=== PATIENT | male | born 1990 | race Caucasian/White ===

== ENCOUNTER 2023-11-19 19:37 | Emergency (ER) | payer OTHER ==
[2023-11-19 19:43] VITALS: BP 115/79; PULSE 76; RESP 16
[2023-11-19] MEDS ORDERED: 0.9%NACL 1000ML 1,000 ML IV ONE (20:00)
== END 2023-11-19 20:11 | disposition left against medical advice (07) ==
LOC: EDH 19:37
DX: F10.129 Alcohol abuse with intoxication, unspecified (principal); E16.2 Hypoglycemia, unspecified; Z53.29 Procedure and treatment not carried out because of patient's decision for other reasons; Y90.9 Presence of alcohol in blood, level not specified
CPT/HCPCS: 82948

== ENCOUNTER 2023-12-26 01:44 | Emergency (ER) | payer OTHER ==
[~2023-12-26] VITALS: Ht 182.9 cm; Wt 77.1 kg
[2023-12-26 01:45] VITALS: BP 134/80; PULSE 72; RESP 18
== END 2023-12-26 02:53 | disposition left against medical advice (07) ==
LOC: EDH 01:44
DX: M79.89 Other specified soft tissue disorders (principal); R22.31 Localized swelling, mass and lump, right upper limb
CPT/HCPCS: 36415; 73080; 84550

== ENCOUNTER 2024-11-17 12:39 | Emergency (ER) | payer OTHER ==
[~2024-11-17] VITALS: Ht 182.9 cm; Wt 77.1 kg
--- NOTE | 2024-11-17 13:02 | ERN ---
General Chief Complaint: Flank Pain Stated Complaint: FLANK PAIN Time Seen by MD: 12:44 Source: patient, EMS History of Present Illness Initial Comments Patient is a 34-year-old male coming in complaining of left flank pain. He states he had does has a history of kidney stones in his has been having that flank pain for about three days. He also states that his pain is quantifies the 10/10. Allergies: Coded Allergies: Penicillins (Unverified Allergy, Unknown, 11/17/24) Past Medical History Past Medical History: Other Medical History Other: KIDNEY STONES Past Surgical History: None Surgical History Other: UNKNOWN ANKLE INFANT ROS Dictation CONSTITUTIONAL: No chills, no fever, no weakness, no diaphoresis, no malaise. HEAD/FACE: No signs of trauma. EENT: No eye pain, no blurred vision, no tearing, no double vision, no ear pain, no ear discharge, no nose pain, no nasal congestion, no throat pain, no throat swelling, no mouth pain. RESPIRATORY: No cough, no orthopnea, no SOB, no stridor, no wheezing. CARDIOVASCULAR: No chest pain, no edema, no palpitations, no syncope. GASTROINTESTINAL/ABDOMINAL: abdominal pain, no constipation, no diarrhea, no nausea, no vomiting. GENITOURINARY: No abnormal discharge, no dysuria, no frequent urination, no hematuria. No complaints of pain in the genitals. MUSCULOSKELETAL: No back pain, no gout, no joint pain, no joint swelling, no muscle pain, no muscle stiffness, no neck pain. INTEGUMENTARY: No change in color, no change in hair/nails, no dryness, no lesion, no lumps, no rash. NEUROLOGICAL/PSYCH: No anxiety, not depressed, no emotional problem, no headache, no numbness, no pre-existing deficit, no history of seizures, no tremors, no weakness. HEMATOLOGIC/LYMPHATIC: Not anemic, no history of blood clots, no apparent bleeding, no bruising, glands not swollen. All Systems Negative, Except as Noted. Physical Exam Physical Exam Dictation VITAL SIGNS: Reviewed. GENERAL APPEARANCE: Alert, oriented x3, no acute distress, obese. HEAD AND FACE: Non-traumatic. EYES: PERRL, pink conjunctivas, eyelid no trauma, anterior chamber clear. EARS: Pinnas intact and no signs of trauma or erythema. Ear canals clear and no discharge. TMs no erythema. NOSE: No discharge, no bleeding. OROPHARYNX: Mouth normal, teeth no caries, tongue pink. Pharynx clear, no erythema. Tonsils no exudates, no abscesses noted. Mucous membrane moist. NECK: Supple, non-tender, no thyromegaly, no masses, no JVD, no bruits. BREAST: Deferred. CHEST: No tenderness, no crepitus, no paradoxical movement, no retractions. LUNGS: Clear, well-ventilated, symmetric, no rales, no wheezing, no rhonchi, no stridor, good breath sounds bilaterally. HEART: Regular rate, regular rhythm, no murmur, no gallops. VASCULAR: No peripheral edema. ABDOMEN: Soft, positive bowel sounds, nondistended, no guarding, left flank pa in, left CVA angle tenderness, no rebound, no masses no hepatomegaly, no splenomegaly, no Ren's sign, no hernias. RECTAL: Deferred. GENITAL: Deferred. NEUROLOGICAL: Normal speech, gross motor function intact, gross sensory function intact. MUSCULOSKELETAL: Neck nontender, full range of motion, back nontender, full range of motion. EXTREMITIES: Nontender, full range of motion. SKIN: Color pink, dry, no turgor, no rash, no lacerations, no abrasions, no contusions. LYMPHATICS: Deferred. Results Laboratory and Microbiology Lab and Micro Result Laboratory Tests Test 11/17/24 13:09 White Blood Count 10.8 K/uL (4.8-10.8) Red Blood Count 3.86 MIL/uL (4.50-6.20) L Hemoglobin 12.1 g/dL (14.0-18.0) L Hematocrit 35.0 % (42-54) L Mean Corpuscular Volume 90.7 fL (79-99) Mean Corpuscular Hemoglobin 31.3 pg (27.0-33.0) Mean Corpuscular Hemoglobin Concent 34.6 g/dL (32.0-36.0) Red Cell Distribution Width 12.6 % (11.0-15.5) Platelet Count 213 K/uL (130-400) Mean Platelet Volume 9.4 fL (7.5-10.5) Immature Granulocyte % (Auto) 0.4 % (0-1) Neutrophils (%) (Auto) 85.4 % (40.0-77.0) H Lymphocytes (%) (Auto) 8.1 % (21.0-51.0) L Monocytes (%) (Auto) 5.0 % (3.0-13.0) Eosinophils (%) (Auto) 0.6 % (0.0-8.0) Basophils (%) (Auto) 0.5 % (0.0-5.0) Neutrophils # (Auto) 9.2 K/uL (1.8-7.7) H Lymphocytes # (Auto) 0.9 K/uL (1.0-4.8) L Monocytes # (Auto) 0.5 K/uL (0.1-1.0) Eosinophils # (Auto) 0.07 K/uL (0.00-0.70) Basophils # (Auto) 0.05 K/uL (0.00-0.20) Absolute Immature Granulocyte (auto 0.04 K/uL (0-1) Nucleated Red Blood Cells 0.0 % (0.0-0.19) White Cell Morphology Comment See comments Sodium Level 142 mmol/L (136-145) Potassium Level 3.6 mmol/L (3.5-5.1) Chloride Level 107 mmol/L (101-111) Carbon Dioxide Level 26 mmol/L (21-32) Blood Urea Nitrogen 22 mg/dL (7-18) H Creatinine 1.1 mg/dL (0.5-1.3) Glomerular Filtration Rate Calc 89 mL/min (>90) Random Glucose 150 mg/dL (70-105) H Total Calcium 8.5 mg/dL (8.5-10.1) EKG/XRAY/US/CT/MRI CT Scan Comment [address] [address] IMAGING REPORT Signed PATIENT: SOPHIA COSTA MR#: [id number] : 1990 SEX: M AGE: 34 LOCATION: [facility] ORDER [id number] STATUS: REG ER REPORT#: [id number] SERVICE [id number] REASON: left flank pain ORDERING PHYSICIAN: JAMISON BRADFORD MD PROCEDURE: ABD PEL WO - CT ABDOMEN/PELVIS W/O CONTRAST EXAM: CT Abdomen and Pelvis Without IV contrast CLINICAL HISTORY: left flank pain TECHNIQUE: Axial computed tomography images of the abdomen and pelvis without intravenous contrast. CONTRAST: No IV contrast. COMPARISON: None provided. FINDINGS: LUNG BASES: There is mild dependent airspace disease within the bilateral lower lobes that is presumed to reflect atelectasis. LIVER: Unremarkable. GALLBLADDER AND BILE DUCTS: The gallbladder appears within normal limits. No radioopaque gallstones are seen. No biliary ductal dilatation is evident. PANCREAS: Unremarkable. SPLEEN: A tiny calcific granuloma is noted along splenic parenchyma. ADRENAL GLANDS: Unremarkable. KIDNEYS, URETERS, AND BLADDER: 0.3 cm obstructing calculus at the left UVJ resulting in mild left hydroureter/hydronephrosis. A few tiny non-obstructive calculi are noted along right kidney. STOMACH AND BOWEL: Unremarkable appearance of the stomach and bowel. No evidence of bowel obstruction. No evidence suggesting enteritis or colitis. APPENDIX: No evidence of acute appendicitis on CT examination. PERITONEUM: No free fluid. No free air. LYMPH NODES: No lymphadenopathy is evident. REPRODUCTIVE: Unremarkable as visualized. VASCULATURE: No evidence of abdominal aortic aneurysm. BONES: No aggressive appearing osseous lesion. No acute osseous pathology evident. IMPRESSION: 1. 0.3 cm obstructing calculus at left ureterovesical junction with mild left hydroureter and hydronephrosis. 2. Non-obstructing right renal calculi. /[place] DICTATED BY: TRAVIS CONWAY Jr., MD DATE: 11/17/24 1520 ELECTRONICALLY SIGNED BY: TRAVIS CONWAY Jr., MD DATE: 11/17/24 1520 [facility] MDM: Differential diagnosis: Ureter stone, kidney stone, abdominal pain, Rationale: Tests considered and ordered secondary to shared decision making include: Previous outside records reviewed: Old ER visits. Risk of complication and/or morbidity or mortality of patient management: None Medications-Per medication reconciliation Need for hospitalization: Patient does not meet criteria for hospitalization. Patient is a 34-year-old male coming in to be evaluated for left flank pain. CT disclose a 3 mm UVJ stone. Patient will be discharged in stable condition with a diagnosis of ureterolithiasis. I did advised him appropriate follow up with PCP in 1-2 days. ED Course Orders Procedure Category Date Status Time Cbc With Differential LAB 11/17/24 Complete 12:51 Basic Metabolic Panel LAB 11/17/24 Complete 12:51 Urinalysis LAB 11/17/24 Logged W/Microscopic 12:51 0.9%Nacl 1000ml (Ns PHA 11/17/24 Complete 1000ml) 13:00 Ketorolac PHA 11/17/24 Complete Tromethamine 30mg/Ml 13:00 Ct Abdomen/Pelvis W/O CT 11/17/24 Resulted Contrast 13:07 Current Medications Medications (Trade) Dose Ordered Sig/Mackenzie Route PRN Reason Start Time Stop Time Status Last Admin Dose Admin Ketorolac Tromethamine (toRADol) 30 mg ONCE ONCE IVP 11/17/24 13:00 11/17/24 13:01 DC 11/17/24 13:12 Sodium Chloride 1,000 ml @ 0 mls/hr ONCE ONCE IV 11/17/24 13:00 11/17/24 13:01 DC 11/17/24 13:11 Vital Signs Date Time Temp Pulse Resp B/P (MAP) Pulse Ox O2 Delivery O2 Flow Rate FiO2 11/17/24 13:16 59 18 122/98 100 Room Air* 0 21 11/17/24 12:40 62 16 119/70 96 Room Air 0 DX & DISP Disposition: Discharge Departure Impression: Primary Impression: Left ureteral stone Condition: Stable Scripts Ciprofloxacin HCl (Cipro) 250 Mg Tablet 1 TAB PO BID for 7 Days, #14 TAB 0 Refills Prov: JAMISON BRADFORD MD 11/17/24 Tamsulosin HCl (Flomax) 0.4 Mg Cap.er.24h 1 CAP PO DAILY for 7 Days, #7 CAP 0 Refills Prov: JAMISON BRADFORD MD 11/17/24 Ketorolac Tromethamine (Ketorolac Tromethamine) 10 Mg Tablet 1 TAB PO Q6HPRN PRN for pain for 5 Days, #20 TAB 0 Refills Prov: JAMISON BRADFORD MD 11/17/24 Additional Instructions: FOLLOW-UP WITH PRIMARY CARE PROVIDER IN 1 TO 2 DAYS. TAKE MEDICATIONS DIRECTED HERE IN THE EMERGENCY ROOM. OKAY TO CONTINUE HOME MEDICATIONS UNLESS OTHERWISE DISCUSSED DURING YOUR VISIT IN THE EMERGENCY ROOM TODAY. RETURN TO YOUR NEAREST EMERGENCY ROOM IF SYMPTOMS WORSEN OR IF THERE IS NO IMPROVEMENT. CALL 911 IF YOU NEED IMMEDIATE ASSISTANCE. TAKE TYLENOL [id number] NEEDED AND IF NO CONTRAINDICATIONS ARE PRESENT. INCREASE ORAL HYDRATION. A WOUND CULTURE OR URINE CULTURE WAS ORDERED HERE IN THE EMERGENCY ROOM DEPARTMENT PLEASE FOLLOW-UP WITH PRIMARY CARE PROVIDER AND ADVISE THEM TO GET REPORTS FROM OUR FACILITY. IF YOU HAD ANY CINDY WRAP/SPLINTS THAT WERE APPLIED HERE, PLEASE DO NOT REMOVE THEM UNTIL YOU SEE YOUR PRIMARY CARE OR SPECIALTY. Referrals: Referrals: SELF,REFERRAL (PCP) MANDO GTZ MD, LUIS A MD Time of Disposition: 14:35 JAMISON BRADFORD MD Nov 17, 2024 13:02
[2024-11-17] MEDS: 0.9%NACL 1000ML 1,000 ML IV ONE (13:11)
[2024-11-17 13:15] LABS: IMMATURE GRANULOCYTE ABSOLUTE 0.04 K/uL (0-1); NUCLEATED RED BLOOD CELLS 0.0 % (0.0-0.19); PLATELET COUNT (AUTO) 213 K/uL (130-400); RED BLOOD CELL COUNT(AUTO) 3.86 MIL/uL (4.50-6.20); RED CELL DISTRIBUTION WIDTH 12.6 % (11.0-15.5); WHITE BLOOD COUNT (AUTO) 10.8 K/uL (4.8-10.8)
--- NOTE | 2024-11-17 13:24 | NUR ---
pt was given ua cup
[2024-11-17 13:34] LABS: CREATININE 1.1 mg/dL (0.5-1.3); GLOMERULAR FILTR. RATE CALC 89.0 mL/min (>90); GLUCOSE,RANDOM 150.0 mg/dL (70-105); SODIUM SERUM 142.0 mmol/L (136-145); UREA NITROGEN, BLOOD 22.0 mg/dL (7-18)
--- NOTE | 2024-11-17 14:21 | HMCIMG ---
EXAM: CT Abdomen and Pelvis Without IV contrast CLINICAL HISTORY: left flank pain TECHNIQUE: Axial computed tomography images of the abdomen and pelvis without intravenous contrast. CONTRAST: No IV contrast. COMPARISON: None provided. FINDINGS: LUNG BASES: There is mild dependent airspace disease within the bilateral lower lobes that is presumed to reflect atelectasis. LIVER: Unremarkable. GALLBLADDER AND BILE DUCTS: The gallbladder appears within normal limits. No radioopaque gallstones are seen. No biliary ductal dilatation is evident. PANCREAS: Unremarkable. SPLEEN: A tiny calcific granuloma is noted along splenic parenchyma. ADRENAL GLANDS: Unremarkable. KIDNEYS, URETERS, AND BLADDER: 0.3 cm obstructing calculus at the left UVJ resulting in mild left hydroureter/hydronephrosis. A few tiny non-obstructive calculi are noted along right kidney. STOMACH AND BOWEL: Unremarkable appearance of the stomach and bowel. No evidence of bowel obstruction. No evidence suggesting enteritis or colitis. APPENDIX: No evidence of acute appendicitis on CT examination. PERITONEUM: No free fluid. No free air. LYMPH NODES: No lymphadenopathy is evident. REPRODUCTIVE: Unremarkable as visualized. VASCULATURE: No evidence of abdominal aortic aneurysm. BONES: No aggressive appearing osseous lesion. No acute osseous pathology evident. IMPRESSION: 1. 0.3 cm obstructing calculus at left ureterovesical junction with mild left hydroureter and hydronephrosis. 2. Non-obstructing right renal calculi. /[place]
[2024-11-17] MEDS ORDERED: CIPR-279 PO (14:37)
[2024-11-17] MEDS ORDERED: TAMS-55 PO (14:37)
[2024-11-17] MEDS ORDERED: KETO10TA2 PO (14:37)
[2024-11-17 14:55] VITALS: BP 121/82; PULSE 60; RESP 18; TEMP 97.9; O2SAT 96
== END 2024-11-17 14:58 | disposition home or self-care (01) ==
LOC: EDH 12:39
DX: N13.2 Hydronephrosis with renal and ureteral calculous obstruction (principal); Z88.0 Allergy status to penicillin
CPT/HCPCS: 99285; 74176; 96374; 96361; 80048; 85025; 36415; J1885; J7030

== ENCOUNTER → 2025-02-03 | Emergency (ER) | payer BC, OTHER ==
[~2025-02-03] VITALS: Ht 185.4 cm; Wt 77.1 kg
[~2025-02-03] MED LIST: CIPR-279 PO; KETO10TA2 PO; TAMS-55 PO
--- NOTE | 2025-02-03 23:00 | NUR ---
PATIENT VALUABLES GIVEN TO SECURITY. ED RN WITNESSED. RECEIPT IN CHART.
[2025-02-03 23:10] VITALS: BP 138/68; PULSE 115; RESP 22; TEMP 100.2; O2SAT 100
[2025-02-03 23:23] VITALS: TEMP 100.2
--- NOTE | 2025-02-03 23:33 | ERN ---
ED Note History of Present Illness Stated Complaint: NASAL CONGESTION, FEVER Chief Complaint: Flu Symptoms Time Seen by MD: 22:59 Time Seen by Midlevel: 22:59 Dictation: The patient is a 34-year-old male with no past medical history who presents to the emergency department with complaints of runny nose and fevers onset two weeks ago. Reports he was not fci and thinks he was exposed to something. Patient denies any cough or any other associated symptoms Allergies: Coded Allergies: Penicillins (Unverified Allergy, Unknown, 11/17/24) Home Meds Active Scripts Ciprofloxacin HCl (Cipro) 250 Mg Tablet, 1 TAB PO BID for 7 Days, #14 TAB 0 Refills Prov:JAMISON BRADFORD MD 11/17/24 Tamsulosin HCl (Flomax) 0.4 Mg Cap.er.24h, 1 CAP PO DAILY for 7 Days, #7 CAP 0 Refills Prov:JAMISON BRADFORD MD 11/17/24 Ketorolac Tromethamine (Ketorolac Tromethamine) 10 Mg Tablet, 1 TAB PO Q6HPRN PRN for pain for 5 Days, #20 TAB 0 Refills Prov:JAMISON BRADFORD MD 11/17/24 Past Medical History Past Medical History: Other Additional Past Medical Hx: KIDNEY STONES Surgical History: None Surgical History Other: UNKNOWN ANKLE INFANT RN Note Reviewed/Agreed w/PFSH: Yes Review of System Dictation Constitutional: Negative for chills, and weight loss positive for fever Eyes: Negative for injury, pain,redness, and discharge ENT: Negative for injury,pain or swelling positive for nasal congestion Cardiovascular: Negative for chest pain, palpitations, and edema Respiratory: Negative for shortness of breath, cough, and wheezing, Abdomen/GI: Negative for abdominal pain, nausea, vomiting, diarrhea, and constipation Back: Negative for injury and pain : Negative for injury, bleeding and discharge MS/Extremity: Negative for injury and deformity Skin: Negative for rash, and discoloration Neuro: Negative for headache, weakness, numbness, tingling, and seizure Psych: Negative for suicide ideation, homicidal ideation, and hallucinations Initial Vital Sign VS Vital Signs Date Time Temp Pulse Resp B/P (MAP) Pulse Ox O2 Delivery O2 Flow Rate FiO2 02/03/25 22:58 100.2 118 20 114/71 98 Room Air 02/03/25 23:10 0 21 Physical Exam Dictation Vital Signs reviewed General Appearance: Alert, oriented x 3, no acute distress, well developed, nourished. Head and Face: non-traumatic. Eyes: PERRL, pink conjunctivas, eyelid no trauma, anterior chamber with arcus senilis. Ears: Pinnas intact and no signs of trauma or erythema ear canals clear and no discharge TM no erythema Nose: No discharge, no bleeding. Oropharynx: Mouth normal, tongue pink. pharynx clear,no erythema, tonsils no exudates, no abscesses noted, mucous membrane moist Neck: Supple, non-tender, no thyromegaly, no masses, no JVD, no bruits Breast:Deferred Chest:No tenderness, no crepitus, no paradoxical movement, no retractions Lungs:Clear, well-ventilated, symmetric, no rales, no wheezing, no rhonchi, no stridor, good breath sounds bilaterally Heart: Regular rate, regular rhythm, no murmur, no gallops Vascular: no peripheral edema, Abdomen: Soft, positive bowel sounds, nondistended, no guarding, nontender, no rebound, no masses no hepatomegaly, no splenomegaly, no Ren's sign, no hernias. Rectal: Deferred Genital: Deferred Neurological: Normal speech, motor function intact, sensory function intact Musculoskeletal: Neck nontender, full range of motion, back nontender, full range of motion, Extremities: nontender, full range of motion Skin: Color pink, dry, no turgor, no rash, no lacerations, no abrasions, no contusions. Lymphatic: Deferred Results (Laboratory/Radiology) Laboratory/Radiology Laboratory Tests Test 02/03/25 23:14 Influenza Type A Antigen Negative For Type A Influenza Type B Antigen Negative For Type B SARS-CoV-2 Antigen (Rapid) PRESUMPTIVE NEGATIVE Group A Streptococcus Rapid negative (NEGATIVE) Labs Reviewed?: Yes ED Course ED Course Orders Procedure Category Date Status Time Influenza Type A & B, LAB 02/03/25 Complete Rapid 23:07 Covid19 (Sars Antigen LAB 02/03/25 Complete Rapid) 23:07 Rapid (Group A Strep) LAB 02/03/25 Complete 23:07 Acetaminophen 500mg PHA 02/03/25 Complete Tab (Tylenol 500mg T 23:30 Current Medications Medications (Trade) Dose Ordered Sig/Mackenzie Route PRN Reason Start Time Stop Time Status Last Admin Dose Admin Acetaminophen (TYLenol 500MG TAB) 1,000 mg ONCE ONCE PO 02/03/25 23:30 02/03/25 23:31 DC 02/03/25 23:23 Vital Signs Date Time Temp Pulse Resp B/P (MAP) Pulse Ox O2 Delivery O2 Flow Rate FiO2 02/03/25 23:23 100.2 02/03/25 23:10 100.2 115 22 138/68 100 Room Air* 0 21 02/03/25 22:58 100.2 118 20 114/71 98 Room Air Medical Decision Making MDM The patient is a 34-year-old male with no past medical history who presents to the emergency department with complaints of runny nose and fevers onset two weeks ago. Reports he was not f[facility] and thinks he was exposed to something. Patient denies any cough or any other associated symptoms Serology was negative. Patient has symptoms consistent with a an upper respiratory infection. On physical exam patient is in no acute distress, nontoxic appearance, clear lung sounds. Patient will be discharged to follow up with PCP. Differential diagnosis: URI, strep throat, influenza Need for hospitalization: Patient does not meet criteria for hospitalization. There are no social concerns with this patient. DX & DISP Disposition: Discharge Departure Impression: Primary Impression: URI (upper respiratory infection) Condition: Stable Additional Instructions: FOLLOW-UP WITH PRIMARY CARE PROVIDER IN 1 TO 2 DAYS. TAKE MEDICATIONS DIRECTED HERE IN THE EMERGENCY ROOM. OKAY TO CONTINUE HOME MEDICATIONS UNLESS OTHERWISE DISCUSSED DURING YOUR VISIT IN THE EMERGENCY ROOM TODAY. RETURN TO YOUR NEAREST EMERGENCY ROOM IF SYMPTOMS WORSEN OR IF THERE IS NO IMPROVEMENT. CALL 911 IF YOU NEED IMMEDIATE ASSISTANCE. TAKE TYLENOL [id number] NEEDED AND IF NO CONTRAINDICATIONS ARE PRESENT. INCREASE ORAL HYDRATION. A WOUND CULTURE OR URINE CULTURE WAS ORDERED HERE IN THE EMERGENCY ROOM DEPARTMENT PLEASE FOLLOW-UP WITH PRIMARY CARE PROVIDER AND ADVISE THEM TO GET REPEAT PORTS FROM OUR FACILITY. IF YOU HAD ANY CINDY WRAP/SPLINTS THAT WERE APPLIED HERE, PLEASE DO NOT REMOVE THEM UNTIL YOU SEE YOUR PRIMARY CARE OR SPECIALTY. Referrals: SELF,REFERRAL (PCP) Time of Disposition: 00:06 I have reviewed the case, and I agree with, Diagnosis and Plan JEEVAN ÁLVAREZ Feb 03, 2025 23:33
[2025-02-03 23:53] LABS: RAPID GROUP A STREP negative (NEGATIVE)
[2025-02-04 00:03] LABS: COVID19 (SARS ANTIGEN RAPID) PRESUMPTIVE NEGATIVE (NEGATIVE); INFLUENZA TYPE A Negative For Type A (NEGATIVE); INFLUENZA TYPE B Negative For Type B (NEGATIVE)
== END ==
LOC: EDH 22:57
DX: J06.9 Acute upper respiratory infection, unspecified (principal); Z88.0 Allergy status to penicillin; Z20.822 Contact with and (suspected) exposure to COVID-19
CPT/HCPCS: 87426; 87804; 87880; 99283

== ENCOUNTER 2025-03-07 09:02 | Emergency (ER) | payer BC ==
[~2025-03-07] VITALS: Ht 182.9 cm; Wt 63.5 kg
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
--- NOTE | 2025-03-07 11:11 | NUR ---
SITTER: SITTER DOCUMENTATION BEING DONE FOR PT UNSTEADINESS AND WANTING TO GET OOB. PT IS NOT AN SI/SA PATIENT.
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
[2025-03-07 11:47] LABS: IMMATURE GRANULOCYTE ABSOLUTE 0.11 K/uL (0-1); NUCLEATED RED BLOOD CELLS 0.0 % (0.0-0.19); PLATELET COUNT (AUTO) 407 K/uL (130-400); RED BLOOD CELL COUNT(AUTO) 4.55 MIL/uL (4.50-6.20); RED CELL DISTRIBUTION WIDTH 13.2 % (11.0-15.5); WHITE BLOOD COUNT (AUTO) 18.8 K/uL (4.8-10.8)
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
[2025-03-07 11:57] LABS: INR 1.01 (0.85-1.15)
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
--- NOTE | 2025-03-07 12:24 | NUR ---
WITH PT PERMISSION I NOTIFIED [facility] ABOUT PT BEING HERE AND HIS CONDITION. THEY WILL SEND A UNIT TO ADD FURTHER INFORMATION ON HIS ALREADY FILED REPORT.
[2025-03-07 12:26] LABS: ALCOHOL, BLOOD < 3 mg/dL (0-10); ASPARTATE AMINOTRANSFERASE 48 U/L (10-37); CREATININE 0.8 mg/dL (0.5-1.3); GLOMERULAR FILTR. RATE CALC 117 mL/min (>90); GLUCOSE,RANDOM 112 mg/dL (70-105); SODIUM SERUM 133 mmol/L (136-145); TOTAL PROTEIN, SERUM 9.2 g/dL (6.0-8.3); UREA NITROGEN, BLOOD 17 mg/dL (7-18)
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
--- NOTE | 2025-03-07 12:30 | NUR ---
TRANSFER: [id number] HERE TO TRANSPORT PT TO [facility] H ER TO ER. PACKET WAS PROVIDED TO [facility] W/REPORT WAS CALLED TO YAMINI WEAVER
[2025-03-07 12:31] VITALS: BP 134/81; PULSE 98; RESP 18; TEMP 98; O2SAT 99
[2025-03-07 12:32] LABS: CREATINE KINASE, TOTAL 1114 U/L (21-232)
--- NOTE | 2025-03-07 12:45 | NUR ---
[facility] [employer] OFFICER ROBERT #[id number] ARRIVED AND I MENTIONED EARLIER, PT GAVE HIS PERMISSION FOR ME TO UPDATE HIS RECORD/CASE#
== END 2025-03-07 12:40 | disposition short-term general hospital (02) ==
LOC: EDH 09:02
DX: S06.5X0A Traumatic subdural hemorrhage without loss of consciousness, initial encounter (principal); G10 Huntington's disease; Z87.442 Personal history of urinary calculi; Z88.0 Allergy status to penicillin; Y04.0XXA Assault by unarmed brawl or fight, initial encounter; Y93.89 Activity, other specified; Y92.89 Other specified places as the place of occurrence of the external cause; Y99.8 Other external cause status
CPT/HCPCS: 36415; 70450; 71045; 72125; 72170; 80048; 80076; 82550; 85025; 85610; 85730; 86850; 86900; 86901; 99285